=== PATIENT | female | born 1985 | race Caucasian/White ===

== ENCOUNTER 2024-03-25 14:35 | Emergency (ER) | payer OTHER ==
[~2024-03-25] VITALS: Ht 154.9 cm; Wt 110.2 kg
--- NOTE | 2024-03-25 15:24 | ERN ---
ED Note History of Present Illness Stated Complaint: RT EYE PROBLEM Chief Complaint: Eye Problems Time Seen by MD: 14:37 Time Seen by Midlevel: 14:37 Dictation: 39-year-old female presents to the emergency department due to reported having itching and mild swelling primarily around the eyes that began last night. She states that she believes it was associated with a chip that she has never tried before. At this time, she denies having any chest pain, chest pressure, shortness of breath or difficulty swallowing. Currently, she denies also having any fever, chills or changes in vision. Upon initial evaluation, the patient presents in no acute distress. Allergies: Coded Allergies: No Known Allergies (Unverified Allergy, Unknown, 03/25/24) Emergency Care [employer]: None Home Meds Active Scripts Famotidine (Pepcid) 20 Mg Tablet, 1 TAB PO BID for 5 Days, #10 TAB 0 Refills Prov:ALEJANDRO LEES [employer] 03/25/24 Diphenhydramine HCl (Benadryl) 25 Mg Capsule, 1 CAP PO TID for itchig for 5 Days, #15 CAP 0 Refills Prov:ALEJANDRO LEES [employer] 03/25/24 Past Medical History Past Medical History: No Pertinent History Surgical History: None PSYCH History: no pertinent psych hx Social History: Lives with family RN Note Reviewed/Agreed w/PFSH: Yes Review of System Dictation Skin: Itching and swelling to the face Initial Vital Sign VS Vital Signs Date Time Temp Pulse Resp B/P (MAP) Pulse Ox O2 Delivery O2 Flow Rate FiO2 03/25/24 14:37 99.0 60 20 134/71 99 Room Air 03/25/24 15:43 0 21 Physical Exam Dictation General: awake, alert, NAD Head/Face: Mild swelling that is periorbital sparing the nose and mouth Eyes: PERRL, EOMI ENT: Oral mucosa moist Neck: Trachea midline, supple Cardiovascular: RRR, no edema Respiratory: Symmetrical, non-labored Abdomen: Soft, non-tender, non-distended, no guarding. Skin: Warm, dry, good turgor, no rash MS/Extremity: Pulses equal, no cyanosis, neurovascular intact, FROM Neuro: COAx4, GCS 15, steady gait, Psych: Normal behavior, mood, and affect normal ED Course ED Course Orders Procedure Category Date Status Time Diphenhydramine Hcl PHA 03/25/24 Complete (Benadryl Inj) 15:30 Dexamethasone 4mg/Ml PHA 03/25/24 Complete 1ml Vial (Dexametha 15:30 Famotidine 20mg Tab PHA 03/25/24 Complete (Pepcid 20mg Tab) 15:30 Current Medications Medications (Trade) Dose Ordered Sig/Davonte Route PRN Reason Start Time Stop Time Status Last Admin Dose Admin Dexamethasone Sodium Phosphate (dexaMETHasone 4MG/ML 1ML VIAL) 10 mg ONCE ONCE IM 03/25/24 15:30 03/25/24 15:31 DC 03/25/24 15:51 Diphenhydramine HCl (BENAdryl INJ) 25 mg ONCE ONCE IM 03/25/24 15:30 03/25/24 15:31 DC 03/25/24 15:51 Famotidine (Pepcid 20mg Tab) 40 mg ONCE ONCE PO 03/25/24 15:30 03/25/24 15:31 DC 03/25/24 15:51 Vital Signs Date Time Temp Pulse Resp B/P (MAP) Pulse Ox O2 Delivery O2 Flow Rate FiO2 03/25/24 18:48 98.2 65 16 130/68 98 Room Air* 0 21 03/25/24 15:43 99.0 60 16 131/70 98 Room Air* 0 21 03/25/24 14:37 99.0 60 20 134/71 99 Room Air Medical Decision Making MDM MDM: Differential diagnosis: Acute allergic reaction, contact dermatitis. Rationale: Tests considered and ordered secondary to shared decision making include: Previous outside records reviewed: Old ER visits. Risk of complication and/or morbidity or mortality of patient management: None Medications-Per medication reconciliation Need for hospitalization: Patient does not meet criteria for hospitalization. Need for emergency major/minor surgery: No There are no social concerns with this patient. Prescription drug management Prescriptions will include symptomatic care Patient's prior external medical records from other ER visits were reviewed by me as indicated. Prior testing and results from previous visits were reviewed. Prior tests were taken into account with medical decision making and resource utilization, independent historian/historians were used to obtain complete medical history. I independently interpreted the test that were performed, results were reviewed by me and considered findings on radiology if ordered. Medical management and examination interpretation discussions were had by me with other qualified healthcare professionals as indicated for the patient's care. DX & DISP Disposition: Discharge Departure Impression: Primary Impression: Acute allergic reaction Condition: Stable Scripts Famotidine (Pepcid) 20 Mg Tablet 1 TAB PO BID for 5 Days, #10 TAB 0 Refills Prov: ALEJANDRO LEES 03/25/24 Diphenhydramine HCl (Benadryl) 25 Mg Capsule 1 CAP PO TID for itchig for 5 Days, #15 CAP 0 Refills Prov: ALEJANDRO LEES 03/25/24 Referrals: GRISEL SOLIS DO (PCP) Time of Disposition: 18:26 ALEJANDRO LEES Mar 25, 2024 15:24 JOSE ANN DO Mar 26, 2024 07:49
[2024-03-25] MEDS: DiphenhydrAMINE HCL 50 MG/ML VIAL IM ONE (15:51)
[2024-03-25] MEDS: FAMOTIDINE 20MG TAB PO ONE (15:51)
[2024-03-25] MEDS: dexaMETHasone SOD PHOSPHATE 4 MG/ML 1ML VIAL IM ONE (15:51)
[2024-03-25] MEDS ORDERED: FAMO-136 PO (18:26)
[2024-03-25] MEDS ORDERED: DIPH25CA85 PO (18:26)
[2024-03-25 18:48] VITALS: BP 130/68; PULSE 65; RESP 16; TEMP 98.3; O2SAT 98
== END 2024-03-25 18:54 | disposition home or self-care (01) ==
LOC: EDH 14:35
DX: T78.40XA Allergy, unspecified, initial encounter (principal); Z79.899 Other long term (current) drug therapy; X58.XXXA Exposure to other specified factors, initial encounter
CPT/HCPCS: 99284; 96372 ×2; J1100; J1200